=== PATIENT | male | born 1985 | race Caucasian/White ===

== ENCOUNTER 2017-01-18 15:51 | Emergency (ER) | payer SELFPAY ==
[~2017-01-18] VITALS: Ht 180.3 cm; Wt 69.9 kg
[~2017-01-18 15:51] MED LIST: AMOX875T2 PO; CYCL10TA9 PO; DOXY100C49 PO; HYDR1TAB PO; NAPR-243 PO; ONDAN4ODT PO; PENI500T PO; PRED5TAB PO; SULF1TAB38 PO; TRM50T PO
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
[2017-01-18] MEDS ORDERED: ANTACID SUSP 30 ML UDC (MYLANTA) PO ONE (16:00)
[2017-01-18] MEDS ORDERED: LIDOCAINE 2% VISCOUS 15 ML UDC PO ONE (16:00)
--- NOTE | 2017-01-18 16:03 | ED Abdominal Pain ---
General Chief Complaint: Abdominal/GI Problems Stated Complaint: ABD PAIN, N/V Source of Information: Patient Exam Limitations: No Limitations History of Present Illness Time Seen By Provider: 15:59 Initial Comments Sent to ER as a transfer from [facility] in [place] with reports of leukocytosis and abdominal pain. Patient presented this morning with reports of nausea vomiting and diarrhea that began this morning awakening from sleep. He was incontinent of stool 1. He was given a total of 2 L of normal saline, Phenergan and Zofran with moderate improvement in his pain. Laboratory evaluation showed a white blood cell count 19.9, hemoglobin 16.3, hematocrit 48.2, history of 95,000. He had a normal sedimentation rate of 6 and a CRP of 6.6. Sodium was 140, potassium 4.7, CO2 21, chloride 100, BUN 16, creatinine 0.88, glucose 94, lipase 27, amylase 55. Total bilirubin 0.5, alkaline phosphatase 91, AST 25, ALT 35. Urine drug screen was positive for cannabinoids , methamphetamines, benzodiazepines. He has been residing with his sister. No fevers. No exposure to ill contacts and no one else in the house is ill. He has not eaten out recently. Transfer here for CT scan as they do not have that capability at [facility]. Timing/Duration: 12 Hours Severity/Quality: Moderate Location: Generalized Abdomen Radiation: No Radiation Activities at Onset: None Associated Symptoms: Nausea/Vomiting Allergies and Home Medications Allergies Coded Allergies: NKANo Known Allergies (Unverified Allergy, Mild, 02/18/10) Home Medications Hyoscyamine Sulfate 0.125 Mg Tab.subl #10 0.25 MG SL Q6H PRN PRN CRAMPS Prescribed by: HOWIE TINOCO on 01/18/171702 Ondansetron 8 Mg Tab.rapdis #10 8 MG PO Q6H PRN PRN NAUSEA/VOMITING Prescribed by: HOWIE TINOCO on 01/18/171702 Review of Systems Constitutional: see HPI EENTM: No Symptoms Reported Respiratory: No Symptoms Reported Cardiovascular: No Symptoms Reported Gastrointestinal: See HPI Abdominal Pain Genitourinary: No Symptoms Reported Musculoskeletal: no symptoms reported Skin: no symptoms reported Psychiatric/Neurological: No Symptoms Reported Endocrine: No Symptoms Reported Hematologic/Lymphatic: No Symptoms Reported Past Qbakwjl-Twptsm-Jzwbhs Hx Patient Social History Type Used: Cigarettes Recent Hopitalizations: Yes (unknown) Immunizations Up To Date Tetanus Booster (TDap): Less than 5yrs Date of Influenza Vaccine: Oct 13, 2013 Surgeries HX Surgeries: Yes (lung sx) Respiratory Hx Respiratory Disorders: No Cardiovascular Hx Cardiac Disorders: No Neurological Hx Neurological Disorders: No Reproductive System Hx Reproductive Disorders: No Sexually Transmitted Disease: No Genitourinary Hx Genitourinary Disorders: No Gastrointestinal Hx Gastrointestinal Disorders: No Musculoskeletal Hx Musculoskeletal Disorders: No Endocrine Hx Endocrine Disorders: Yes Endocrine Disorders: Hyperthyroidism HEENT HX ENT Disorders: No Cancer Hx Cancer: No Psychosocial Hx Psychiatric Problems: Yes Behavioral Health Disorders: ADD/ADHD, Anxiety, PTSD, Depression Integumentary HX Skin/Integumentary Disorder: No Blood Transfusions Hx Blood Disorders: No Adverse Reaction to a Blood Tr: No Family Medical History Significant Family History: No Pertinent Family Hx Physical Exam Vital Signs VS - Last 72 Hours, by Label 01/18/17 15:56 Temp 99.1 Pulse 116 Resp 16 B/P 121/111 Pulse Ox 97 Capillary Refill : General Appearance: WD/WN no apparent distress other (alert and oriented, transferred from EMS cot) HEENT: PERRL/EOMI normal ENT inspection Neck: non-tender full range of motion Respiratory: no respiratory distress no accessory muscle use Cardiovascular: regular rate, rhythm ( to our bed without difficulty.) no murmur Gastrointestinal: normal bowel sounds non tender soft other (states that his epigastric discomfort is much improved but still comes and goes) Extremities: normal range of motion non-tender Neurologic/Psychiatric: alert normal mood/affect oriented x 3 Skin: normal color warm/dry Progress/Results/Core Measures Results/Orders My Orders Orders-HOWIE TINOCO APRN Antacid Suspension (Mylanta Suspension (01/18/17 16:00) Lidocaine 2% Viscous 15 Ml (Xylocaine Vi (01/18/17 16:00) Ct Abdomen/Pelvis W (01/18/17 15:55) Iohexol Injection (Omnipaque 350 Mg/Ml 1 (01/18/17 16:30) Ns (Ivpb) (Sodium Chloride 0.9% Ivpb Bag (01/18/17 16:30) Medications Given in ED Current Medications Medications Dose Ordered Sig/Glenny Route Start Time Stop Time Status Last Admin Dose Admin Al Hydrox/Mg Hydrox/Simethicone 30 ml ONCE ONCE PO 01/18/17 16:00 01/18/17 16:01 DC 01/18/17 16:45 30 ML Iohexol 100 ml ONCE ONCE IV 01/18/17 16:30 01/18/17 16:31 DC 01/18/17 16:28 100 ML Lidocaine HCl 15 ml ONCE ONCE PO 01/18/17 16:00 01/18/17 16:01 DC 01/18/17 16:45 15 ML Sodium Chloride 100 ml ONCE ONCE IV 01/18/17 16:30 01/18/17 16:31 DC 01/18/17 16:29 80 ML Vital Signs/I&O Vital Sign - Last 12Hours 01/18/17 15:56 Temp 99.1 Pulse 116 Resp 16 B/P 121/111 Pulse Ox 97 Departure Communication Progress Notes See the attached CT report. 171-patient's abdominal pain is better after GI cocktail and he now requests something to drink. We will discharged home. Discussed the case with Dr. Morfin agrees. Impression Impression: Primary Impression: Nausea vomiting and diarrhea Disposition: HOME, SELF-CARE Condition: Stable Departure-Patient Inst. Decision time for Depature: 17:02 Referrals: NO,LOCAL PHYSICIAN (PCP/Family) Primary Care Physician Patient Instructions: Diarrhea and Traveler's Diarrhea, Adult (DC) Add. Discharge Instructions: 1. Drink plenty of fluids. Gatorade is a good choice 2. Nausea medication as directed 3. Follow-up with your regular doctor next week All discharge instructions reviewed with patient and/or family. Voiced understanding. Scripts Hyoscyamine Sulfate (Levsin-Sl)0.125 Mg Tab.subl0.25 Mg SL Q6H PRN CRAMPS #10 TAB Prov:HOWIE TINOCO [employer] 01/18/17 Ondansetron (Zofran Odt)8 Mg Tab.rapdis8 Mg PO Q6H PRN NAUSEA/VOMITING #10 TAB Prov:HOWIE TINOCO [employer] 01/18/17 HOWIE TINOCO [employer] Jan 18, 2017 16:03
[2017-01-18] MEDS ORDERED: NS 100 ML (IVPB) BAG IV ONE (16:30)
[2017-01-18] MEDS ORDERED: IOHEXOL 350 MG/ML 100 ML (OMNIPAQUE 350) VIAL IV ONE (16:30)
--- NOTE | 2017-01-18 17:00 | Diagnostic Imaging Report ---
PROCEDURE: CT abdomen and pelvis with contrast. TECHNIQUE: Multiple contiguous axial images were obtained through the abdomen and pelvis after administration of intravenous contrast. INDICATION: One-day history of diffuse abdominal pain, vomiting and diarrhea. FINDINGS: Left upper quadrant small bowel jejunal loops showed some mucosal thickening. The ileal loops showed some mucosal hyperemia and hyperenhancement with elevated intraluminal fluid load. There is fluid in the lumen of the large bowel diffusely. Findings would be compatible with nonspecific enteritis. No appreciable perienteric or pericolonic edema is identified and there is no evidence for abscess, pneumatosis, free air or findings of perforation. There is no bowel obstruction. There were no differential air-fluid levels. There are no focal inflammatory changes identified. The unobstructed kidneys normal. Liver, gallbladder, bile ducts, spleen, adrenals and pancreas all negative. The aortoiliac and mesenteric vessels patent and nonaneurysmal. There is no ascites. No hernia or abdominal wall defect or abdominal wall fluid collection. IMPRESSION: Abnormal appearance of the bowel. Proximal jejunal loops showed some mural thickening. Ileal loop showed elevated intraluminal fluid load and mucosal hyperemia and there is abnormal fluid volume throughout the lumen of the colon. This can be seen in nonspecific hypermotile state and raises the question of enteritis. There is no focal inflammatory process. There is no obstruction. There is no abscess. The remaining abdominopelvic solid and hollow viscera were normal. Dictated by: Dictated on workstation # [id number]
[2017-01-18] MEDS ORDERED: ONDA8TAB9 PO (17:03)
[2017-01-18] MEDS ORDERED: HYOS0.1283 SL (17:03)
[2017-01-18 17:10] VITALS: BP 115/91
== END 2017-01-18 17:10 | disposition home or self-care (01) ==
LOC: EDUNIT# 15:51 → ER 15:52
DX: R11.2 Nausea with vomiting, unspecified (principal); R19.7 Diarrhea, unspecified; D72.829 Elevated white blood cell count, unspecified
CPT/HCPCS: 74177

== ENCOUNTER 2017-04-25 10:22 | Emergency (ER) | payer SELFPAY ==
[~2017-04-25] VITALS: Ht 182.9 cm; Wt 68.0 kg
[~2017-04-25 10:22] MED LIST changes: +HYOS0.1283 SL; +ONDA8TAB9 PO
--- NOTE | 2017-04-25 10:56 | ED Abdominal Pain ---
General Chief Complaint: Abdominal/GI Problems Stated Complaint: ABD PAIN Nursing Triage Note: ARRIVED VIA AMB WITH COMPLAINTS OF LEFT UPPER ABD PAIN STARTING THIS AM. ALSO COMPLAINS OF DARK URINE AND LIQUID STOOL. Sepsis Screen: No Definite Risk Source of Information: Patient Exam Limitations: No Limitations History of Present Illness Time Seen By Provider: 10:55 Initial Comments To ER with reports of epigastric abdominal painthis morning upon awakening. No vomiting. He's also had dark urine and loose stool this morning but no diarrhea. Last food intake was last night. No fevers or chills. Timing/Duration: 1-2 Days Severity/Quality: Severe Location: Epigastric Radiation: No Radiation Activities at Onset: None Allergies and Home Medications Allergies Coded Allergies: NKANo Known Allergies (Unverified Allergy, Mild, 02/18/10) Home Medications No Active Prescriptions or Reported Meds Review of Systems Constitutional: see HPI EENTM: No Symptoms Reported Respiratory: No Symptoms Reported Cardiovascular: No Symptoms Reported Gastrointestinal: See HPI, Abdominal Pain, Diarrhea Genitourinary: No Symptoms Reported Musculoskeletal: no symptoms reported Skin: no symptoms reported Psychiatric/Neurological: No Symptoms Reported Endocrine: No Symptoms Reported Past Alccnpn-Kikwqi-Rtzabf Hx Patient Social History Alcohol Use: Occasionally Uses Recreational Drug Use: Yes Drug of Choice: POT Smoking Status: Current Everyday Smoker Type Used: Cigarettes Recent Foreign Travel: No Contact w/Someone Who Travel: No Recent Infectious Disease Expo: No Recent Hopitalizations: Yes (unknown) Immunizations Up To Date Tetanus Booster (TDap): Less than 5yrs Date of Influenza Vaccine: Oct 13, 2013 Surgeries HX Surgeries: Yes (lung sx) Respiratory Hx Respiratory Disorders: No Cardiovascular Hx Cardiac Disorders: No Cardiac Disorders: Hypertension Neurological Hx Neurological Disorders: No Reproductive System Hx Reproductive Disorders: No Sexually Transmitted Disease: No Genitourinary Hx Genitourinary Disorders: No Gastrointestinal Hx Gastrointestinal Disorders: No Musculoskeletal Hx Musculoskeletal Disorders: No Endocrine Hx Endocrine Disorders: Yes Endocrine Disorders: Hyperthyroidism HEENT HX ENT Disorders: No Cancer Hx Cancer: No Psychosocial Hx Psychiatric Problems: Yes Behavioral Health Disorders: ADD/ADHD, Anxiety, PTSD, Depression Integumentary HX Skin/Integumentary Disorder: No Blood Transfusions Hx Blood Disorders: No Adverse Reaction to a Blood Tr: No Family Medical History Significant Family History: No Pertinent Family Hx Physical Exam Vital Signs VS - Last 72 Hours, by Label 04/25/17 10:29 Temp 98.0 Pulse 98 B/P (MAP) 146/115 Pulse Ox 98 Capillary Refill : Less Than 3 Seconds General Appearance: WD/WN, no apparent distress HEENT: PERRL/EOMI, normal ENT inspection Neck: non-tender, full range of motion Respiratory: normal breath sounds, no respiratory distress, no accessory muscle use Cardiovascular: regular rate, rhythm, no murmur Gastrointestinal: normal bowel sounds, soft, tenderness (epigastric) Extremities: normal range of motion, non-tender Neurologic/Psychiatric: alert, normal mood/affect, oriented x 3 Skin: normal color, warm/dry Progress/Results/Core Measures Results/Orders Lab Results Laboratory Tests Test 04/25/17 10:40 Range/Units White Blood Count 6.9 4.3-11.0 10^3/uL Red Blood Count 4.69 4.35-5.85 10^6/uL Hemoglobin 14.2 13.3-17.7 G/DL Hematocrit 42 40-54 % Mean Corpuscular Volume 90 80-99 FL Mean Corpuscular Hemoglobin 30 25-34 PG Mean Corpuscular Hemoglobin Concent 34 32-36 G/DL Red Cell Distribution Width 13.2 10.0-14.5 % Platelet Count 326 130-400 10^3/uL Mean Platelet Volume 9.6 7.4-10.4 FL Neutrophils (%) (Auto) 44 42-75 % Lymphocytes (%) (Auto) 40 12-44 % Monocytes (%) (Auto) 14 H 0-12 % Eosinophils (%) (Auto) 2 0-10 % Basophils (%) (Auto) 1 0-10 % Neutrophils # (Auto) 3.0 1.8-7.8 X 10^3 Lymphocytes # (Auto) 2.8 1.0-4.0 X 10^3 Monocytes # (Auto) 0.9 0.0-1.0 X 10^3 Eosinophils # (Auto) 0.1 0.0-0.3 10^3/uL Basophils # (Auto) 0.0 0.0-0.1 10^3/uL Sodium Level 138 135-145 MMOL/L Potassium Level 4.5 3.6-5.0 MMOL/L Chloride Level 109 H 98-107 MMOL/L Carbon Dioxide Level 20 L 21-32 MMOL/L Anion Gap 9 5-14 MMOL/L Blood Urea Nitrogen 14 7-18 MG/DL Creatinine 0.91 0.60-1.30 MG/DL Estimat Glomerular Filtration Rate > 60 BUN/Creatinine Ratio 15 Glucose Level 110 H 70-105 MG/DL Calcium Level 9.1 8.5-10.1 MG/DL Total Bilirubin 1.4 H 0.1-1.0 MG/DL Aspartate Amino Transf (AST/SGOT) 21 5-34 U/L Alanine Aminotransferase (ALT/SGPT) 31 0-55 U/L Alkaline Phosphatase 83 40-136 U/L Total Protein 7.3 6.4-8.2 G/DL Albumin 4.4 3.2-4.5 G/DL My Orders Orders - HOWIE TINOCO APRN Cbc With Automated Diff (04/25/17 10:51) Comprehensive Metabolic Panel (04/25/17 10:51) Ua Culture If Indicated (04/25/17 10:51) Saline Lock/Iv-Start (04/25/17 10:51) Drug Screen Stat (Urine) (04/25/17 10:52) Ns Iv 1000 Ml (Sodium Chloride 0.9%) (04/25/17 11:00) Fentanyl Injection (Sublimaze Injection (04/25/17 11:00) Ct Abdomen/Pelvis W (04/25/17 10:54) Antacid Suspension (Mylanta Suspension (04/25/17 11:00) Lidocaine 2% Viscous 15 Ml (Xylocaine Vi (04/25/17 11:00) Iohexol Injection (Omnipaque 350 Mg/Ml 1 (04/25/17 11:00) Ns (Ivpb) (Sodium Chloride 0.9% Ivpb Bag (04/25/17 11:00) Lipase (04/25/17 11:34) Fentanyl Injection (Sublimaze Injection (04/25/17 11:45) Medications Given in ED Current Medications Medications Dose Ordered Sig/Glenny Route Start Time Stop Time Status Last Admin Dose Admin Al Hydrox/Mg Hydrox/Simethicone 30 ml ONCE ONCE PO 04/25/17 11:00 04/25/17 11:01 DC 04/25/17 11:01 30 ML Fentanyl Citrate 50 mcg ONCE ONCE IVP 04/25/17 11:00 04/25/17 11:01 DC 04/25/17 10:57 50 MCG Fentanyl Citrate 50 mcg ONCE ONCE IVP 04/25/17 11:45 04/25/17 11:46 DC 04/25/17 11:50 50 MCG Iohexol 100 ml ONCE ONCE IV 04/25/17 11:00 04/25/17 11:02 DC 04/25/17 11:19 100 ML Lidocaine HCl 15 ml ONCE ONCE PO 04/25/17 11:00 04/25/17 11:01 DC 04/25/17 11:01 15 ML Sodium Chloride 80 ml ONCE ONCE IV 04/25/17 11:00 04/25/17 11:02 DC 04/25/17 11:19 80 ML Vital Signs/I&O Vital Sign - Last 12Hours 04/25/17 10:29 Temp 98.0 Pulse 98 B/P (MAP) 146/115 Pulse Ox 98 Blood Pressure Mean: 125 Diagnostic Imaging Diagonstic Imaging: CT Comments NAME: CALVIN POLK [facility] REC#: [id number] PT STATUS: REG ER : 1985 PHYSICIAN: HOWIE TINOCO APRN ADMIT DATE: 04/25/17/ER Draft Date of Exam:04/25/17 CT ABDOMEN/PELVIS W PROCEDURE: CT abdomen and pelvis with contrast. TECHNIQUE: Multiple contiguous axial images were obtained through the abdomen and pelvis after administration of intravenous contrast. CONTRAST: 100 mL of Omnipaque 350 was administered intravenously. INDICATION: Left upper quadrant pain. FINDINGS: The lung bases appear clear. The liver, gallbladder, spleen, adrenal glands, and pancreas appear unremarkable. The kidneys have symmetric enhancement and contrast excretion. No hydronephrosis. There is no bowel obstruction. No significant free fluid or fluid collection in the abdomen or pelvis is seen. There is a prominent amount of luminal fluid within the distal small bowel loops which may correlate with enteritis. There is no bowel obstruction. The appendix is not well from the adjacent structures in the right lower quadrant. No significant inflammatory changes, however, are seen in the surrounding fat and no abscess is present. The abdominal aorta is normal in caliber. No periaortic significantly enlarged lymph nodes are seen. The osseous structures appear grossly unremarkable. IMPRESSION: Prominent amount of fluid in the distal small bowel loops may correlate with enteritis. Dictated on workstation # [id number] Dict: 04/25/17 1132 Trans: 04/25/17 1155 [id number] Interpreted by: MARCO A TOTH MD Electronically signed by: Departure Impression Impression: Primary Impression: Enteritis Disposition: 01 HOME, SELF-CARE Condition: Stable Departure-Patient Inst. Decision time for Depature: 11:58 Referrals: NO,LOCAL PHYSICIAN (PCP/Family) Primary Care Physician Patient Instructions: No Instuctions Given Add. Discharge Instructions: 1. Drink plenty of clear fluids 2. Prescribed medication as needed for cramping 3. See your doctor later this week All discharge instructions reviewed with patient and/or family. Voiced understanding. Scripts Hyoscyamine Sulfate (Levsin-Sl) 0.125 Mg Tab.subl 0.125 MG SL Q6H Y for CRAMPS, #14 TAB Prov: HOWIE TINOCO APRN 04/25/17 HOWIE TINOCO APRN April 25, 2017 10:56
[2017-04-25 11:00] LABS: BASOPHILS % (AUTO) 1 % (0-10); EOSINOPHILS # (AUTO) 0.1 10^3/uL (0.0-0.3); EOSINOPHILS % (AUTO) 2 % (0-10); LYMPHOCYTES # (AUTO) 2.8 X 10^3 (1.0-4.0); LYMPHOCYTES % (AUTO) 40 % (12-44); MEAN CORPUSCULAR HEMOGLOBIN 30 PG (25-34); MEAN CORPUSCULAR HGB CONC 34 G/DL (32-36); MEAN CORPUSCULAR VOLUME 90 FL (80-99); MEAN PLATELET VOLUME 9.6 FL (7.4-10.4); MONOCYTES # (AUTO) 0.9 X 10^3 (0.0-1.0); MONOCYTES % (AUTO) 14 % (0-12); NEUTROPHILS % (AUTO) 44 % (42-75); PLATELET COUNT 326 10^3/uL (130-400); RED BLOOD COUNT 4.69 10^6/uL (4.35-5.85); RED CELL DISTRIBUTION WIDTH 13.2 % (10.0-14.5); WHITE BLOOD COUNT 6.9 10^3/uL (4.3-11.0)
[2017-04-25] MEDS ORDERED: ANTACID SUSP 30 ML UDC (MYLANTA) PO ONE (11:00)
[2017-04-25] MEDS ORDERED: NS 100 ML (IVPB) BAG IV ONE (11:00)
[2017-04-25] MEDS ORDERED: fentaNYL INJECTION 100 MCG/2 ML AMP IVP ONE ×2 (11:00→11:45)
[2017-04-25] MEDS ORDERED: IOHEXOL 350 MG/ML 100 ML (OMNIPAQUE 350) VIAL IV ONE (11:00)
[2017-04-25] MEDS ORDERED: NS IV 1000 ML 1,000 ML IV SCH (11:00)
[2017-04-25] MEDS ORDERED: LIDOCAINE 2% VISCOUS 15 ML UDC PO ONE (11:00)
[2017-04-25 11:14] LABS: ALANINE AMINOTRANSFERASE 31 U/L (0-55); ALBUMIN 4.4 G/DL (3.2-4.5); ANION GAP 9 MMOL/L (5-14); ASPARTATE AMINO TRANSFERASE 21 U/L (5-34); BILIRUBIN,TOTAL 1.4 MG/DL (0.1-1.0); BLOOD UREA NITROGEN 14 MG/DL (7-18); BUN/CREATININE RATIO 15; CALCIUM 9.1 MG/DL (8.5-10.1); CARBON DIOXIDE 20 MMOL/L (21-32); CHLORIDE 109 MMOL/L (98-107); CREATININE SERUM 0.91 MG/DL (0.60-1.30); GFR ESTIMATED > 60; GLUCOSE 110 MG/DL (70-105); POTASSIUM 4.5 MMOL/L (3.6-5.0); SODIUM 138 MMOL/L (135-145); TOTAL PROTEIN 7.3 G/DL (6.4-8.2)
--- NOTE | 2017-04-25 11:56 | Diagnostic Imaging Report ---
PROCEDURE: CT abdomen and pelvis with contrast. TECHNIQUE: Multiple contiguous axial images were obtained through the abdomen and pelvis after administration of intravenous contrast. CONTRAST: 100 mL of Omnipaque 350 was administered intravenously. INDICATION: Left upper quadrant pain. FINDINGS: The lung bases appear clear. The liver, gallbladder, spleen, adrenal glands, and pancreas appear unremarkable. The kidneys have symmetric enhancement and contrast excretion. No hydronephrosis. There is no bowel obstruction. No significant free fluid or fluid collection in the abdomen or pelvis is seen. There is a prominent amount of luminal fluid within the distal small bowel loops which may correlate with enteritis. There is no bowel obstruction. The appendix is not well from the adjacent structures in the right lower quadrant. No significant inflammatory changes, however, are seen in the surrounding fat and no abscess is present. The abdominal aorta is normal in caliber. No periaortic significantly enlarged lymph nodes are seen. The osseous structures appear grossly unremarkable. IMPRESSION: Prominent amount of fluid in the distal small bowel loops may correlate with enteritis. Dictated by: Dictated on workstation # [id number]
[2017-04-25] MEDS ORDERED: HYOS0.1283 SL (11:59)
[2017-04-25 12:08] VITALS: BP 130/93
[2017-04-25 12:20] LABS: BILIRUBIN,URINE NEGATIVE (NEGATIVE); KETONES,URINE NEGATIVE (NEGATIVE); LEUKOCYTE ESTERASE ,URINE NEGATIVE (NEGATIVE); NITRITE,URINE NEGATIVE (NEGATIVE); PH,URINE 6 (5-9); PROTEIN,URINE NEGATIVE (NEGATIVE); UROBILINOGEN,URINE NORMAL (NORMAL)
== END 2017-04-25 12:07 | disposition home or self-care (01) ==
LOC: EDUNIT# 10:22 → ER 10:23
DX: K52.9 Noninfective gastroenteritis and colitis, unspecified (principal); I10 Essential (primary) hypertension; F17.210 Nicotine dependence, cigarettes, uncomplicated
CPT/HCPCS: 36415; 74177; 80053; 80306; 81000; 83690; 85025

== ENCOUNTER 2017-10-24 09:48 | Emergency (ER) | payer SELFPAY ==
[~2017-10-24] VITALS: Ht 175.3 cm; Wt 72.6 kg
[2017-10-24] MEDS ORDERED: RX-MUPIROCIN (BACTROBAN) 2% OINT 22 GM TUBE TOP STA (10:41)
[2017-10-24] MEDS ORDERED: RX-TRIMETH/SULFA. 160-800 MG (BACTRIM DS) TAB PPK#2 PO STA (10:41)
[2017-10-24] MEDS ORDERED: SULF1TAB35 PO (10:45)
[2017-10-24] MEDS ORDERED: TETANUS,DIPTH,PERTUSS P/F (BOOSTRIX) 0.5 ML VIAL IM ONE (10:45)
[2017-10-24] MEDS ORDERED: MUPI1OIN6 TP (10:45)
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
[2017-10-24 11:11] VITALS: BP 125/89
== END 2017-10-24 11:09 | disposition home or self-care (01) ==
LOC: EDUNIT# 09:48 → ER 09:51
DX: L08.9 Local infection of the skin and subcutaneous tissue, unspecified (principal); I10 Essential (primary) hypertension; E05.90 Thyrotoxicosis, unspecified without thyrotoxic crisis or storm; F90.9 Attention-deficit hyperactivity disorder, unspecified type; F41.9 Anxiety disorder, unspecified; F43.10 Post-traumatic stress disorder, unspecified; F32.9 Major depressive disorder, single episode, unspecified; F12.10 Cannabis abuse, uncomplicated; Z23 Encounter for immunization
CPT/HCPCS: 90715; 99281

== ENCOUNTER 2017-12-15 23:42 | Emergency (ER) | payer SELFPAY ==
[~2017-12-15] VITALS: Ht 175.3 cm; Wt 70.3 kg
[~2017-12-15 23:42] MED LIST changes: +MUPI1OIN6 TP; +SULF1TAB35 PO
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
[2017-12-16] MEDS ORDERED: RX-OSELTAMIVIR 75 MG (TAMIFLU) BOX OF 10 PO STA (04:57)
[2017-12-16] MEDS ORDERED: IBUPROFEN 800 MG (MOTRIN) TAB PO STA (04:57)
[2017-12-16] MEDS ORDERED: AMOXICILLIN 500 MG (POLYMOX) CAP PO STA (04:57)
[2017-12-16] MEDS ORDERED: AMOX500C2 PO (05:04)
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
[2017-12-16 05:10] VITALS: BP 123/88
== END 2017-12-16 05:10 | disposition home or self-care (01) ==
LOC: EDUNIT# 23:42 → ER 23:44
DX: J11.1 Influenza due to unidentified influenza virus with other respiratory manifestations (principal); K08.89 Other specified disorders of teeth and supporting structures; F41.9 Anxiety disorder, unspecified; F32.9 Major depressive disorder, single episode, unspecified; F43.10 Post-traumatic stress disorder, unspecified; F90.9 Attention-deficit hyperactivity disorder, unspecified type; E03.9 Hypothyroidism, unspecified; I10 Essential (primary) hypertension; F17.210 Nicotine dependence, cigarettes, uncomplicated
CPT/HCPCS: 87804; 99283

== ENCOUNTER 2018-03-13 17:38 | Emergency (ER) | payer SELFPAY ==
[~2018-03-13] VITALS: Ht 175.3 cm; Wt 70.3 kg
[~2018-03-13 17:38] MED LIST changes: +AMOX500C2 PO
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
--- NOTE | 2018-03-13 18:03 | Diagnostic Imaging Report ---
INDICATION: Trauma, right foot pain. FINDINGS: Three views of the right foot show no fracture, dislocation, or other abnormality. IMPRESSION: Normal right foot. There is no change from 01/27/2013. Dictated by: Dictated on workstation # [id number]
[2018-03-13] MEDS ORDERED: HYDR-757 PO (18:14)
[2018-03-13 18:19] VITALS: BP 136/86
== END 2018-03-13 18:19 | disposition home or self-care (01) ==
LOC: EDUNIT# 17:38 → ER 17:40
DX: S92.401A Displaced unspecified fracture of right great toe, initial encounter for closed fracture (principal); I10 Essential (primary) hypertension; E05.90 Thyrotoxicosis, unspecified without thyrotoxic crisis or storm; F90.9 Attention-deficit hyperactivity disorder, unspecified type; F41.9 Anxiety disorder, unspecified; F32.9 Major depressive disorder, single episode, unspecified; F12.10 Cannabis abuse, uncomplicated; F17.210 Nicotine dependence, cigarettes, uncomplicated; Z88.1 Allergy status to other antibiotic agents; Y04.8XXA Assault by other bodily force, initial encounter
CPT/HCPCS: 73630